=== PATIENT | female | born 1945 | race Caucasian/White ===

== ENCOUNTER → 2016-12-15 | Outpatient (CLI) | payer OTHER | LOC: MMPC 11:11 | PROVIDERS: ATTEND Nurse Practitioner Family | DX: F32.9 Major depressive disorder, single episode, unspecified (principal); E78.5 Hyperlipidemia, unspecified; N84.1 Polyp of cervix uteri; Z01.419 Encounter for gynecological examination (general) (routine) without abnormal findings | CPT/HCPCS: G0101; G0439; G0463 ==